=== PATIENT | male | born 1980 | race Caucasian/White ===

== ENCOUNTER 2016-10-14 21:58 | Emergency (ER) | payer OTHER ==
[~2016-10-14] VITALS: Ht 177.8 cm; Wt 150.0 kg
[~2016-10-14 21:58] MED LIST: AMOXICILLIN500 M1 PO; AMOXICILLIN875 MG PO; AUGMENTIN875 MG PO; FLEXERIL10 MG PO; HYDROCODON-ACE1 EAC7 PO; INDOCIN25 MG PO; NOHOMEMEDS; NORCO 7.5/321 TABLET PO; PEN-VEE K,VEET500 MG PO; PERCOCET 5/31 TABLET PO; PREDNISONE10 MG PO; ULTRAM50 MG PO
[2016-10-14] MEDS ORDERED: TRAMADOL HCL50 MG PO (23:50)
[2016-10-15 00:12] VITALS: BP 135/68
== END 2016-10-15 00:32 | disposition home or self-care (01) ==
LOC: EME 21:58
DX: S22.31XA Fracture of one rib, right side, initial encounter for closed fracture (principal); S80.211A Abrasion, right knee, initial encounter; S80.212A Abrasion, left knee, initial encounter; S40.211A Abrasion of right shoulder, initial encounter; Y09 Assault by unspecified means; Y92.488 Other paved roadways as the place of occurrence of the external cause; S30.1XXA Contusion of abdominal wall, initial encounter; F10.10 Alcohol abuse, uncomplicated; F17.200 Nicotine dependence, unspecified, uncomplicated
CPT/HCPCS: 71101; 73030; 73564; 99281; 99284

== ENCOUNTER 2016-11-29 13:38 | Emergency (ER) | payer OTHER ==
[~2016-11-29] VITALS: Ht 182.9 cm; Wt 69.7 kg
[~2016-11-29 13:38] MED LIST changes: +TRAMADOL HCL50 MG PO
[2016-11-29 14:46] LABS: BASOPHIL COUNT 0.1 K/uL (0-0.1); EOSINOPHIL (%) 2.1 % (0-5); EOSINOPHIL COUNT 0.2 K/uL (0-0.3); HEMATOCRIT 35.5 % (38.0-50.0); IMMATURE GRANULOCYTE (%) 0.7 % (0.0-0.7); IMMATURE GRANULOCYTE COUNT 0.1 K/uL; INSTRUMENT ABS NEUTROPHIL CT 3.5 K/uL; LYMPHOCYTE COUNT 2.6 K/uL (1.0-2.8); MCH 36.1 PG (29.0-34.0); MCHC 35.8 G/DL (30.0-36.0); MCV 100.9 FL (86-99); MEAN PLAT.VOLUME 8.4 uM^3 (9.0-12.4); MONOCYTE (%) 8.7 % (3-12); MONOCYTE COUNT 0.6 K/uL (0-0.8); NEUTROPHIL (%) 49.8 % (45-76); NEUTROPHIL COUNT 3.5 K/uL (1.8-6.4); PLATELET COUNT 315 K/uL (156-360); RBC DIS.WIDTH-SD 47.8 % (39-53); RED BLOOD COUNT 3.52 M/uL (4.00-5.50); WHITE BLOOD COUNT 7.1 K/uL (4.1-10.2)
[2016-11-29 14:55] LABS: CHLORIDE 107 mEq/L (99-109); POTASSIUM 4.7 mEq/L (3.7-5.4); SODIUM 141 mEq/L (136-147)
[2016-11-29 14:57] LABS: GLUCOSE 83 mg/dL (70-99)
[2016-11-29 14:58] LABS: ANION GAP 9 MEQ/L (2-14)
[2016-11-29 15:00] LABS: GFR ESTIMATE (CALCULATED) > 59 mL/min/; SERUM ETHYL ALCOHOL 331 mg/dL
[2016-11-29 15:01] LABS: UREA NITROGEN (BUN) 6 mg/dL (9-23)
[2016-11-29 15:33] LABS: ADD MIUA? NO; BILIRUBIN NEGATIVE; BLOOD NEGATIVE; COLOR STRAW ((YELLOW)); GLUCOSE (STRIP) NEGATIVE; KETONES NEGATIVE; LEUKOCYTES NEGATIVE; NITRITE NEGATIVE; PROTEIN (STRIP) NEGATIVE; SPECIFIC GRAVITY 1.005 (1.000-1.030); UROBILINOGEN 0.2 MG/DL (0.2-1.0)
[2016-11-29 15:48] LABS: AMPHETAMINE NEGATIVE (500 ng/mL); BARBITURATES NEGATIVE (200 ng/mL); BENZODIAZEPINES NEGATIVE (150 ng/mL); COCAINE NEGATIVE (150 ng/mL); INTERNAL CONTROLS VALID? YES; METHADONE NEGATIVE (200 ng/mL); METHAMPHETAMINE NEGATIVE (500 ng/mL); OPIATES (MORPHINE) NEGATIVE (100 ng/mL); OXYCODONE NEGATIVE (100 ng/mL); PHENCYCLIDINE NEGATIVE (25 ng/mL); PROPOXYPHENE NEGATIVE (300 ng/mL); THC CANNABINOIDS NEGATIVE (50 ng/mL); TRICYCLIC ANTIDEPRESSANTS NEGATIVE (300 ng/mL)
[2016-11-29 18:18] VITALS: BP 124/88
== END 2016-11-29 18:20 | disposition left against medical advice (07) ==
LOC: EME 13:38
PROVIDERS: Emergency Medicine
DX: F10.229 Alcohol dependence with intoxication, unspecified (principal); Y90.8 Blood alcohol level of 240 mg/100 ml or more; S20.212A Contusion of left front wall of thorax, initial encounter; S60.222A Contusion of left hand, initial encounter; Y04.0XXA Assault by unarmed brawl or fight, initial encounter; F32.9 Major depressive disorder, single episode, unspecified; F17.200 Nicotine dependence, unspecified, uncomplicated
CPT/HCPCS: 70450; 71101; 73130; 74177; 80048; 81003; 85025; 99281; 99285; G0480; J7030

== ENCOUNTER 2017-08-28 09:40 | Emergency (ER) | payer OTHER ==
[~2017-08-28] VITALS: Ht 182.9 cm; Wt 69.5 kg
[2017-08-28] MEDS ORDERED: NAPROXEN500 MG PO (13:00)
[2017-08-28 13:40] VITALS: BP 148/102
== END 2017-08-28 13:54 | disposition home or self-care (01) ==
LOC: EME 09:40
DX: S60.221A Contusion of right hand, initial encounter (principal); Y04.8XXA Assault by other bodily force, initial encounter
CPT/HCPCS: 73130; 99281; 99283

== ENCOUNTER 2017-11-05 20:36 | Emergency (ER) | payer SELFPAY ==
[~2017-11-05] VITALS: Ht 182.9 cm; Wt 81.8 kg
[~2017-11-05 20:36] MED LIST changes: +NAPROXEN500 MG PO
[2017-11-05] MEDS ORDERED: FLEXERIL10 MG PO (21:15)
[2017-11-05] MEDS ORDERED: PREDNISONE10 MG PO (21:15)
[2017-11-05 21:30] VITALS: BP 161/105
== END 2017-11-05 21:30 | disposition home or self-care (01) ==
LOC: RME 20:36 → EME 20:36 → RME 21:30
DX: M54.5 Low back pain (principal); G89.29 Other chronic pain
CPT/HCPCS: 99281; 99284